=== PATIENT | male | born 1960 | race American Indian/Alaskan Native ===

== ENCOUNTER 2017-01-01 09:02 | Emergency (ER) | payer BC, OTHER ==
[2017-01-01] MEDS ORDERED: Oxycodone/Acetaminophen 5/325 mg Tab PO STA (09:42)
[2017-01-01] MEDS ORDERED: Tmp-Smz 800 mg-160 mg DS Tab PO STA (09:43)
[2017-01-01] MEDS ORDERED: Lidocaine 1% Inj (20ml) INFIL ONE (09:43)
[2017-01-01] MEDS ORDERED: Tmp-Smz 800 mg-160 mg DS Tab ONE (09:52)
[2017-01-01] MEDS ORDERED: Lidocaine 1% Inj (20ml) ONE (09:52)
[2017-01-01] MEDS ORDERED: Oxycodone/Acetaminophen 5/325 mg Tab ONE (09:52)
--- NOTE | 2017-01-01 10:17 | C.PDOC ---
History Of Present Illness 56 y/o male, with no significant PMHx, presents to ED for evaluation of area of swelling to back of neck for the last 4 days. Patient admits to chills and nausea. He denies trauma/ injury, vomiting, abdominal pain, or back pain. Time Seen by Provider: 01/01/17 09:19 Chief Complaint (Nursing): Abnormal Skin Integrity History Per: Patient History/Exam Limitations: no limitations Onset/Duration Of Symptoms: Days (4) Current Symptoms Are (Timing): Still Present Location Of Injury: Posterior: Neck Quality Of Symptoms: Painful, Swollen Severity: Moderate Additional History Per: Patient Past Medical History Reviewed: Historical Data, Nursing Documentation, Vital Signs Vital Signs: Last Vital Signs Temp 103.1 F H 01/01/17 10:51 Pulse 114 H 01/01/17 10:51 Resp 19 01/01/17 10:51 BP 113/72 01/01/17 10:51 Pulse Ox 99 01/01/17 12:33 - Medical History PMH: HTN Surgical History: Cholecystectomy - [facility] Procedures ESOPHAGOGASTRODUODENOSCOPY [EGD] W/CLOSED BIOPSY (04/09/13) INFLUENZA VACCINATION (03/21/13) LAPAROSCOPIC CHOLECYSTECTOMY (03/21/13) Family History: States: No Known Family Hx - Social History Hx Tobacco Use: No Hx Alcohol Use: Yes Hx Substance Use: No - Immunization History Hx Tetanus Toxoid Vaccination: No Hx Influenza Vaccination: No Hx Pneumococcal Vaccination: No Review Of Systems Except As Marked, All Systems Reviewed And Found Negative. Constitutional: Positive for: Chills Cardiovascular: Negative for: Chest Pain Respiratory: Negative for: Cough, Shortness of Breath Gastrointestinal: Positive for: Nausea. Negative for: Vomiting, Abdominal Pain , Diarrhea Skin: Positive for: Other (area of swelling to posterior neck). Negative for: Rash Neurological: Negative for: Headache, Dizziness Physical Exam - Physical Exam Appears: Well, Non-toxic, Other (In mild pain) Skin: Warm, Dry, Other (3cm area of fluctuant abscess to posterior aspect of neck (at C-6 level) that is tender and warm to touch) Head: Normacephalic Eye(s): bilateral: Normal Inspection Oral Mucosa: Moist Neck: Normal ROM, Supple Cardiovascular: Rhythm Regular (mildly tachycardic) Respiratory: Normal Breath Sounds, No Rales, No Rhonchi, No Wheezing Gastrointestinal/Abdominal: Normal Exam, Bowel Sounds, Soft, No Tenderness Extremity: Normal ROM Neurological/Psych: Oriented x3 ED Course And Treatment O2 Sat by Pulse Oximetry: 99 (RA) Pulse Ox Interpretation: Normal Progress Note: I&D performed by me - patient tolerated the procedure well. Wound cultures obtainend sent to lab. Pt was given Keflex PO, Bactrim PO, Percocet PO, and Zofran PO in ED. Reevaluation Time: 10:30 Reassessment Condition: Improved (Patient reassessed, is feeling better. Rxs given for Bactrim, Kelfex, Tylenol #3, Zofran. Patient instructed to return to ED in 2 days for wound chck/packing removal.) - Incision & Drainage Of Abscess Anesthesia: Lidocaine 1% (2ml) Procedure: Incised W/Scalpel Blade#: (11), Drained Pus (expressed 20ml of purulent foul smelling discharge), Irrigated Cavity W/Saline, Packed W/Gauze, Cultures Obtained And Sent To Lab Disposition Counseled Patient/Family Regarding: Studies Performed, Diagnosis, Need For Followup, Rx Given - Disposition Referrals: Marco A Lees Jr., MD [Medical Doctor] - Disposition: HOME/ ROUTINE Disposition Time: 10:30 Condition: STABLE Additional Instructions: RETURN TO ER IN 48 HOURS FOR WOUND CHECK, PACKING REMOVAL USE MEDICATIONS DIRECTED RETURN TO ER IF SYMPTOMS WORSEN Prescriptions: Acetaminophen with Codeine [Tylenol with Codeine #3 Tablet] 1 each PO Q6 PRN # 15 tablet PRN Reason: pain Cephalexin [Keflex] 500 mg PO BID #14 capsule Ondansetron [Zofran Odt] 4 mg PO Q8 PRN #10 odt PRN Reason: Nausea/Vomiting Sulfamethoxazole/Trimethoprim [Bactrim DS 800 mg-160 mg] 1 tab PO BID #14 tab Instructions: Abscess (ED) Forms: [facility] (Singaporean) Print Language: BELIZEAN - Clinical Impression Clinical Impression: Abscess of back - Scribe Statement The provider has reviewed the documentation as recorded by the Yadi Castillo All medical record entries made by the Sheilaibclaudia were at my direction and personally dictated by me. I have reviewed the chart and agree that the record accurately reflects my personal performance of the history, physical exam, medical decision making, and the department course for this patient. I have also personally directed, reviewed, and agree with the discharge instructions and disposition.
[2017-01-01 10:53] VITALS: BP 113/72; PULSE 114; RESP 19; TEMP 103.1
[2017-01-01 12:19] VITALS: O2SAT 99
== END 2017-01-01 11:08 | disposition home or self-care (01) ==
LOC: C.ER 09:02
DX: L02.11 Cutaneous abscess of neck (principal)

== ENCOUNTER 2017-01-04 16:43 | Emergency (ER) | payer BC ==
[2017-01-04 17:45] VITALS: BP 135/99; PULSE 84; RESP 16; TEMP 98.4; O2SAT 97
--- NOTE | 2017-01-04 18:03 | C.PDOC ---
History Of Present Illness 56 yr old male presents to the ER for packing removal, s/p I&D to the back of the neck 3 days ago. Patient states he is compliant with the antibiotics. Currently he denies fever, chills, drainage. Time Seen by Provider: 01/04/17 17:53 Chief Complaint (Nursing): Wound Check History Per: Patient History/Exam Limitations: no limitations Onset/Duration Of Symptoms: Days Ago (3) Past Medical History Reviewed: Historical Data, Nursing Documentation, Vital Signs Vital Signs: Last Vital Signs Temp 98.4 F 01/04/17 17:44 Pulse 84 01/04/17 17:44 Resp 16 01/04/17 17:44 BP 135/99 H 01/04/17 17:44 Pulse Ox 97 01/04/17 18:10 - Medical History PMH: HTN Surgical History: Cholecystectomy - [facility] Procedures ESOPHAGOGASTRODUODENOSCOPY [EGD] W/CLOSED BIOPSY (04/09/13) INFLUENZA VACCINATION (03/21/13) LAPAROSCOPIC CHOLECYSTECTOMY (03/21/13) Family History: States: No Known Family Hx - Social History Hx Tobacco Use: No Hx Alcohol Use: Yes Hx Substance Use: No - Immunization History Hx Tetanus Toxoid Vaccination: No Hx Influenza Vaccination: No Hx Pneumococcal Vaccination: No Review Of Systems Except As Marked, All Systems Reviewed And Found Negative. Constitutional: Negative for: Fever, Chills Eyes: Negative for: Vision Change Gastrointestinal: Negative for: Nausea, Vomiting Musculoskeletal: Positive for: Other ((+) I&D to the back of neck. ). Negative for: Shoulder Pain Neurological: Negative for: Weakness, Numbness, Headache Physical Exam - Physical Exam Appears: Non-toxic, No Acute Distress Skin: Warm, Dry, Other ((+) Incisional wound to the posterior neck with packing in place. No erythema. No swelling. ) Head: Atraumatic, Normacephalic Eye(s): bilateral: Normal Inspection Neck: Normal ROM, Supple Chest: Symmetrical Extremity: Bilateral: Atraumatic, Normal Color And Temperature, Normal ROM Neurological/Psych: Oriented x3, Normal Speech Gait: Steady ED Course And Treatment O2 Sat by Pulse Oximetry: 97 (RA) Pulse Ox Interpretation: Normal Medical Decision Making Medical Decision Making: Wound packing removed by me, no more purulent discharge expressed and mild blood. Area was irrigated with NS. No further packing needed. Area cleansed and dressing was applied. Patient was instructed to continue and finish course of antibiotics. Patient stable for discharge. Disposition Counseled Patient/Family Regarding: Diagnosis, Need For Followup - Disposition Disposition: HOME/ ROUTINE Disposition Time: 18:03 Condition: GOOD Additional Instructions: Please continue and finish all antibiotics change dressing daily, wound will heal Follow up with your primary medical doctor or clinic in 2-5 days for further evaluation Instructions: Acute Wound Care (ED) Forms: [email or web address] (Palauan), Work Excuse - POA Present On Arrival: None - Clinical Impression Clinical Impression: Abscess packing removal - PA / ENGINE INSPECTOR / Resident Statement MD/DO has reviewed & agrees with the documentation as recorded. - Scribe Statement The provider has reviewed the documentation as recorded by the Scribe Jolynn Mcbride All medical record entries made by the Scribe were at my direction and personally dictated by me. I have reviewed the chart and agree that the record accurately reflects my personal performance of the history, physical exam, medical decision making, and the department course for this patient. I have also personally directed, reviewed, and agree with the discharge instructions and disposition.
== END 2017-01-04 18:17 | disposition home or self-care (01) ==
LOC: C.ER 16:43
DX: Z48.01 Encounter for change or removal of surgical wound dressing (principal)

== ENCOUNTER 2018-03-11 19:15 | Emergency (ER) | payer BC ==
[2018-03-11 19:27] VITALS: BP 153/94; PULSE 101; RESP 20; TEMP 98.9; O2SAT 95
[2018-03-11] MEDS ORDERED: Lidocaine 5% Patch TD STA (19:54)
--- NOTE | 2018-03-11 20:01 | C.PDOC ---
History Of Present Illness 58 y/o male pt presents to the ER c/o intermittent right shoulder pain x 3 weeks. Pt reports pain is worse at night. No improvements with 800 mg of Motrin. Pt states it's a "spasm". No hx of similar injuries, no numbness or tingling and weakness. Time Seen by Provider: 03/11/18 19:45 Chief Complaint (Nursing): Upper Extremity Problem/Injury History Per: Patient History/Exam Limitations: no limitations Onset/Duration Of Symptoms: Days (21) Current Symptoms Are (Timing): Still Present Quality: "Pain" Severity: Moderate Exacerbating Factor(s): Worse At Night Past Medical History Reviewed: Historical Data, Nursing Documentation, Vital Signs Vital Signs: Last Vital Signs Temp 98.9 F 03/11/18 19:21 Pulse 101 H 03/11/18 19:21 Resp 20 03/11/18 19:21 BP 153/94 H 03/11/18 19:21 Pulse Ox 95 03/11/18 19:21 - Medical History PMH: HTN Surgical History: Cholecystectomy - [facility] Procedures ESOPHAGOGASTRODUODENOSCOPY [EGD] W/CLOSED BIOPSY (04/09/13) INFLUENZA VACCINATION (03/21/13) LAPAROSCOPIC CHOLECYSTECTOMY (03/21/13) Family History: States: Unknown Family Hx - Social History Hx Tobacco Use: No Hx Alcohol Use: No Hx Substance Use: No - Immunization History Hx Tetanus Toxoid Vaccination: No Hx Influenza Vaccination: No Hx Pneumococcal Vaccination: No Review Of Systems Constitutional: Negative for: Fever, Other (previous injury of shoulder ) Musculoskeletal: Positive for: Shoulder Pain. Negative for: Neck Pain, Back Pain Neurological: Negative for: Weakness, Numbness, Other (tingling) Physical Exam - Physical Exam Appears: Well, Non-toxic, No Acute Distress Skin: Normal Color, Warm, Dry Head: Atraumatic, Normacephalic Neck: No Midline Cervical Tenderness, Supple Chest: No Deformity, No Tenderness Extremity: Normal ROM (to right shoulder.), Tenderness (diffuse tender of right anterior and posterior shoulder ), Capillary Refill (<2 sec), No Swelling (to any extremity) Extremity: Bilateral: Atraumatic, Normal Color And Temperature Pulses: Left Radial: Normal, Right Radial: Normal Neurological/Psych: Oriented x3, Normal Speech, Normal Cognition, Normal Motor, Normal Sensation ED Course And Treatment O2 Sat by Pulse Oximetry: 95 (RA) Pulse Ox Interpretation: Normal Medical Decision Making Medical Decision Making: Impression: intermittent shoulder pain Plans: -- lidocaine -- toradol -- tylenol 2027 pt with intermittent migratory right shoulder pain, no trauma, x 3 weeks, worse at night. feels better after toradol and lidoderm patch. no findings consistent with fx, no signs infections. d/c home with pmd and ortho f/u Disposition Counseled Patient/Family Regarding: Diagnosis, Need For Followup, Rx Given - Disposition Referrals: Marco A Lees Jr., MD [Medical Doctor] - Melvin Andrea III, MD [Staff Provider] - Disposition: HOME/ ROUTINE Disposition Time: 20:31 Condition: GOOD Additional Instructions: Remove lidoderm patch after 12 hours. Wait 12 hours before applying another patch. Take ibuprofen 600 mg by mouth (with food); alternate with Tylenol. Take muscle relaxant at bedtime. Follow up next week with Dr Lees and Dr Andrea. Prescriptions: Acetaminophen [Tylenol 325mg tab] 650 mg PO Q4 #50 tab Cyclobenzaprine [Flexeril] 10 mg PO HS #10 tab Lidocaine 5% [Lidoderm] 1 ea TD DAILY #6 patch Instructions: Shoulder Sprain (DC) Forms: [facility] (Czech), General Discharge Instructions - Clinical Impression Clinical Impression: Right shoulder pain - PA / SENIOR DIRECTOR FINANCE / Resident Statement / has reviewed & agrees with the documentation as recorded. - Scribe Statement The provider has reviewed the documentation as recorded by the Yadi Ga Do All medical record entries made by the Scribe were at my direction and personally dictated by me. I have reviewed the chart and agree that the record accurately reflects my personal performance of the history, physical exam, medical decision making, and the department course for this patient. I have also personally directed, reviewed, and agree with the discharge instructions and disposition.
[2018-03-11] MEDS ORDERED: Lidocaine 5% Patch TD ONE (20:04)
== END 2018-03-11 20:41 | disposition home or self-care (01) ==
LOC: C.ER 19:15
DX: M25.511 Pain in right shoulder (principal)
CPT/HCPCS: 96372; 99283; J1885

== ENCOUNTER 2018-04-05 09:33 | Emergency (ER) | payer BC ==
[2018-04-05 09:55] VITALS: TEMP 97.9
--- NOTE | 2018-04-05 10:55 | C.PDOC ---
History Of Present Illness 58 year old male with a history of HTN and diabetes presents to the emergency department with complaints of right shoulder pain, associated with nausea and dizziness this morning. Patient states that his dizziness is worse with movement but alleviated by lying down. Patient states that he is right-hand dominant and denies injury, trauma, or abdominal pain. Time Seen by Provider: 04/05/18 09:56 Chief Complaint (Nursing): Dizziness/Lightheaded History Per: Patient History/Exam Limitations: no limitations Onset/Duration Of Symptoms: Days Current Symptoms Are (Timing): Still Present Quality: "Pain" Exacerbating Factor(s): Strenuous Use Of Affected Area, Movement Past Medical History Reviewed: Historical Data, Nursing Documentation, Vital Signs Vital Signs: Last Vital Signs Temp 97.9 F 04/05/18 09:45 Pulse 15 L 04/05/18 09:45 Resp 15 04/05/18 09:45 BP 136/94 H 04/05/18 09:45 Pulse Ox 95 04/05/18 09:45 - Medical History PMH: HTN Surgical History: Cholecystectomy - [facility] Procedures ESOPHAGOGASTRODUODENOSCOPY [EGD] W/CLOSED BIOPSY (04/09/13) INFLUENZA VACCINATION (03/21/13) LAPAROSCOPIC CHOLECYSTECTOMY (03/21/13) Family History: States: No Known Family Hx - Social History Hx Tobacco Use: No Hx Alcohol Use: Yes Hx Substance Use: No - Immunization History Hx Tetanus Toxoid Vaccination: No Hx Influenza Vaccination: No Hx Pneumococcal Vaccination: No Review Of Systems Except As Marked, All Systems Reviewed And Found Negative. Musculoskeletal: Positive for: Shoulder Pain Neurological: Positive for: Dizziness Physical Exam - Physical Exam Appears: Non-toxic, No Acute Distress Skin: Normal Color, Warm, Dry Head: Atraumatic, Normacephalic Eye(s): bilateral: Normal Inspection, PERRL, EOMI Nose: Normal Neck: Normal, Supple Chest: Symmetrical, No Tenderness Cardiovascular: Rhythm Regular, No Murmur Respiratory: Normal Breath Sounds, No Rales, No Rhonchi, No Wheezing Gastrointestinal/Abdominal: Soft, No Tenderness, No Guarding, No Rebound Extremity: Tenderness (to the right trapezius), No Deformity, No Swelling, No Other (cellulitic process) Extremity: Bilateral: Atraumatic, Normal Color And Temperature, Normal ROM Neurological/Psych: Oriented x3, Normal Speech ED Course And Treatment - Laboratory Results Result Diagrams: 04/05/18 11:17 04/05/18 11:17 ECG: Interpreted By Me, Viewed By Me ECG Rhythm: Sinus Rhythm Interpretation Of ECG: Normal sinus rhythm at 70bpm, normal intervals, nonspecific ST-T wave changes. Rate From EC O2 Sat by Pulse Oximetry: 95 (RA) Pulse Ox Interpretation: Normal - Other Rad XR Right Shoulder X-Ray: Viewed By Me, Read By Radiologist Interpretation: IMPRESSION: No acute displaced fracture or dislocation evident. If symptoms persist or if there is continued clinical concern, x-ray follow-up in 7-10 days should be considered. CXR X-Ray: Viewed By Me, Read By Radiologist Interpretation: IMPRESSION: No focal consolidation. - CT Scan/US CT Head Other Rad Studies (CT/US): Read By Radiologist, Radiology Report Reviewed CT/US Interpretation: IMPRESSION: No acute intracranial pathology identified. 2.1 x 0.4 cm probable lipoma, left frontal scalp soft tissues. Medical Decision Making Medical Decision Making: Plan: CT Head w/o Contrast EKG Chemistry Bloodwork CXR Antivert 25mg PO Toradol 30mg IVP Zofran 4mg IVP XR Right Shoulder Urinalysis Assessment: Dizziness. Right Shoulder Pain/nausea patient states improvement. Will discharge home to follow up with pain management. Disposition - Disposition Referrals: Porfirio Calix DO, DO [Medical Doctor] - Carlos Cerda MD [Medical Doctor] - Ramo Barrett MD [Medical Doctor] - Disposition: HOME/ ROUTINE Disposition Time: 16:07 Condition: STABLE Additional Instructions: follow up with pain management within 2 days call from list provided take medications as needed for pain return to ER if symptoms worsens or progress Prescriptions: Acetaminophen/Codeine [Tylenol/Codeine 300 MG/30 MG] 1 tab PO Q6H PRN #12 tab PRN Reason: Pain, Severe (8-10) Cyclobenzaprine [Cyclobenzaprine HCl] 10 mg PO TID PRN #12 tab PRN Reason: Muscle Spasm Naproxen [Naprosyn] 500 mg PO BID PRN #16 tab PRN Reason: Pain, Moderate (4-7) Ondansetron ODT [Zofran ODT] 4 mg PO TID PRN #12 odt PRN Reason: Nausea/Vomiting Instructions: Upper Back Pain (DC), Nausea and Vomiting, Adult (DC) Forms: [facility] (Montenegrin), General Discharge Instructions - Clinical Impression Clinical Impression: Back pain, Nausea & vomiting - Scribe Statement The provider has reviewed the documentation as recorded by the Scribe (Jorge L Butterfield) Provider Attestation: All medical record entries made by the Scribe were at my direction and personally dictated by me. I have reviewed the chart and agree that the record accurately reflects my personal performance of the history, physical exam, medical decision making, and the department course for this patient. I have also personally directed, reviewed, and agree with the discharge instructions and disposition.
--- NOTE | 2018-04-05 11:28 | CT ---
Date of service: 04/05/2018 PROCEDURE: CT HEAD WITHOUT CONTRAST. HISTORY: dizziness COMPARISON: Noncontrast brain MRI performed 04/10/13 TECHNIQUE: Axial computed tomography images were obtained through the head/brain without intravenous contrast. Radiation dose: Total exam DLP = 1102.83 mGy-cm. This CT exam was performed using one or more of the following dose reduction techniques: Automated exposure control, adjustment of the mA and/or kV according to patient size, and/or use of iterative reconstruction technique. FINDINGS: HEMORRHAGE: No intracranial hemorrhage. BRAIN: No mass effect or edema. Turner-white matter differentiation appears intact. Please note that MRI with diffusion imaging is more sensitive in the detection of acute ischemic event. VENTRICLES: No hydrocephalus. CALVARIUM: Unremarkable. PARANASAL SINUSES: Unremarkable as visualized. No significant inflammatory changes. MASTOID AIR CELLS: Unremarkable as visualized. No inflammatory changes. OTHER FINDINGS: 2.1 x 0.4 cm probable lipoma, left frontal scalp soft tissues. IMPRESSION: No acute intracranial pathology identified. 2.1 x 0.4 cm probable lipoma, left frontal scalp soft tissues.
[2018-04-05 11:29] LABS: BASO % 0.4 % (0.0-2.0); EOS # 0.1 K/uL (0.0-0.7); LYMPH # 0.9 K/uL (1.0-4.3); LYMPH % 9.7 % (20.0-40.0); MEAN CORPUSCULAR HEMOGLOBIN 30.8 pg (27.0-31.0); MEAN CORPUSCULAR HGB CONC 34.3 g/dL (33.0-37.0); MEAN PLATELET VOLUME 9.2 fL (7.2-11.7); MONO # 0.7 K/uL (0.0-0.8); MONO % 7.9 % (0.0-10.0); NEUT # 7.3 K/uL (1.8-7.0); PLATELET COUNT 212 K/uL (130-400); RBC 5.39 Mil/uL (4.40-5.90); RED CELL DISTRIBUTION WIDTH 14.2 % (11.5-14.5)
[2018-04-05 11:35] LABS: HEMOGLOBIN 16.6 g/dL (12.0-18.0)
[2018-04-05 11:56] LABS: ALB/GLOB RATIO 1.2 (1.0-2.1); ALBUMIN 4.4 g/dL (3.5-5.0); ALT/SGPT 37 U/L (21-72); AST/SGOT 36 U/L (17-59); BLOOD UREA NITROGEN 19 mg/dL (9-20); CALCIUM 9.8 mg/dl (8.6-10.4); GFR NON-AFRICAN AMERICAN 57
[2018-04-05 12:06] LABS: B-TYPE NATRIURETIC PEPTIDE 50.4 pg/mL (0-900)
[2018-04-05 12:13] LABS: BANDS 1 % (0-2); BASOPHIL 1 % (0-2); EOSINOPHIL 1 % (0-4); LYMPHOCYTE 10 % (20-40); MONOCYTE 6 % (0-10); NEUTROPHIL 80 % (50-75); PLATELET ESTIMATE NORMAL (NORMAL); REACTIVE LYMPHOCYTES 1 % (0-0); TOTAL CELLS COUNTED 100
--- NOTE | 2018-04-05 12:17 | RAD ---
HISTORY: SOB COMPARISON: Chest x-ray performed 03/21/13 TECHNIQUE: Chest PA and lateral FINDINGS: LUNGS: No focal consolidation. Please note that chest x-ray has limited sensitivity for the detection of pulmonary masses. PLEURA: No significant pleural effusion identified. No definite pneumothorax . CARDIOVASCULAR: Heart size appears within normal limits. No atherosclerotic calcification present. OSSEOUS STRUCTURES: Degenerative changes. VISUALIZED UPPER ABDOMEN: Elevation of the right hemidiaphragm. OTHER FINDINGS: None. IMPRESSION: No focal consolidation.
--- NOTE | 2018-04-05 12:22 | RAD ---
PROCEDURE: Radiographs of the Right Shoulder HISTORY: right shoulder pain COMPARISON: No prior. FINDINGS: BONES: No acute displaced fracture. The distal clavicle and underlying ribs appear intact. JOINTS: No acute dislocation. SOFT TISSUES: Soft tissues appear unremarkable. No evidence of radiopaque foreign body. IMPRESSION: No acute displaced fracture or dislocation evident. If symptoms persist or if there is continued clinical concern, x-ray follow-up in 7-10 days should be considered.
[2018-04-05 13:56] LABS: SQUAMOUS EPITHIAL < 1 /hpf (0-5); URINE BILIRUBIN NEGATIVE (NEGATIVE); URINE BLOOD NEGATIVE (NEGATIVE); URINE CLARITY Clear (Clear); URINE COLOR Straw (YELLOW); URINE GLUCOSE (UA) NORMAL (Normal); URINE LEUKOCYTE ESTERASE NEG Leu/uL (Negative); URINE PROTEIN NEGATIVE (NEGATIVE); URINE UROBILINOGEN NORMAL mg/dL (0.2-1.0)
[2018-04-05] MEDS ORDERED: Lidocaine 100 MG in Sodium Chloride 0.9% 100 ML IV STA (14:09)
[2018-04-05 16:15] VITALS: BP 143/90; PULSE 81; RESP 16; O2SAT 98
--- NOTE | 2018-04-06 22:30 | CARD ---
APPROVED REPORT Date of service: 04/05/2018 EKG Measurement Heart [id number] <Conclusion> Normal sinus rhythm ST elevation, consider early repolarization, pericarditis, or injury Abnormal ECG
== END 2018-04-05 16:20 | disposition home or self-care (01) ==
LOC: C.ER 09:33
DX: R11.2 Nausea with vomiting, unspecified (principal); M54.9 Dorsalgia, unspecified; E11.9 Type 2 diabetes mellitus without complications; I10 Essential (primary) hypertension
CPT/HCPCS: 70450; 71046; 73030; 80053; 81001; 82948; 83735; 83880; 84484; 85025; 93005; 96374; 96375; 99285; J1885; J2001; J2405

== ENCOUNTER 2018-09-03 19:25 | Observation (INO) | payer BC ==
--- NOTE | 2018-09-03 19:37 | C.PDOC ---
History Of Present Illness Patient presents to the ED c/o abdominal pain associated with nausea that has been on and off for the past 3-4 days. Patient reports trying OTC antacids with no relief. Patient still feels nauseous and has decreased PO intake. Patient denies fever, chills, vomit, diarrhea, dysuria, hematuria, back pain, rash. Time Seen by Provider: 09/03/18 19:36 Chief Complaint (Nursing): Abdominal Pain History Per: Patient History/Exam Limitations: no limitations Onset/Duration Of Symptoms: Days (3-4) Current Symptoms Are (Timing): Still Present Context: Food Severity: Moderate Pain Scale Rating Of: 4 Location Of Pain/Discomfort: Diffuse Radiation Of Pain To:: None Quality Of Discomfort: Dull, Aching, "Pain" Associated Symptoms: Nausea, Loss Of Appetite. denies: Vomiting, Diarrhea, Constipation, Urinary Symptoms Alleviating Factors: None Last Bowel Movement: Today Recent travel outside of the [place]: No Additional History Per: Patient Past Medical History Reviewed: Historical Data, Nursing Documentation, Vital Signs Vital Signs: Last Vital Signs Temp 98.6 F 09/03/18 19:27 Pulse 99 H 09/03/18 19:27 Resp 16 09/03/18 19:27 BP 138/102 H 09/03/18 19:27 Pulse Ox 99 09/03/18 19:27 Primary Care Provider: Marco A Lees Jr. - Medical History PMH: HTN Surgical History: Cholecystectomy - [facility] Procedures ESOPHAGOGASTRODUODENOSCOPY [EGD] W/CLOSED BIOPSY (04/09/13) INFLUENZA VACCINATION (03/21/13) LAPAROSCOPIC CHOLECYSTECTOMY (03/21/13) Family History: States: Unknown Family Hx - Social History Hx Tobacco Use: No Hx Alcohol Use: Yes Hx Substance Use: No - Immunization History Hx Tetanus Toxoid Vaccination: No Hx Influenza Vaccination: No Hx Pneumococcal Vaccination: No Review Of Systems Constitutional: Negative for: Fever, Chills Cardiovascular: Negative for: Chest Pain, Palpitations Respiratory: Negative for: Shortness of Breath Gastrointestinal: Positive for: Nausea, Abdominal Pain. Negative for: Vomiting, Diarrhea Genitourinary: Negative for: Dysuria Musculoskeletal: Negative for: Back Pain Skin: Negative for: Rash Neurological: Negative for: Weakness, Numbness, Headache Physical Exam - Physical Exam Appears: Non-toxic, No Acute Distress Skin: Warm, Dry Head: Normacephalic Eye(s): bilateral: Normal Inspection Oral Mucosa: Moist Neck: Supple Chest: Symmetrical Cardiovascular: Rhythm Regular Respiratory: No Rales, No Rhonchi, No Wheezing Gastrointestinal/Abdominal: Soft, Tenderness (diffuse), Distention, No Guarding, No Rebound, Other (tympanic to percussion) Back: No CVA Tenderness Extremity: No Tenderness Extremity: Bilateral: Atraumatic, Normal Color And Temperature, Normal ROM Pulses: Left Dorsalis Pedis: Normal, Right Dorsalis Pedis: Normal Neurological/Psych: Oriented x3 Gait: Steady ED Course And Treatment - Laboratory Results Result Diagrams: 09/03/18 20:06 09/03/18 20:06 ECG: Interpreted By Me, Viewed By Me ECG Rhythm: Sinus Rhythm (77), Nonspecific Changes O2 Sat by Pulse Oximetry: 99 (ON RA) Pulse Ox Interpretation: Normal Progress Note: Plan: - EKg. - Labs. - Protonix 40 mg IVP. - IV fluids. - Zofran 4 mg IVP. - UA. Report Submission Date: September 03, 2018 10:22:52 PM EDT. Name:CELIO RODRIGUEZ Exam Date:September 03, 2018 9:33:28 PM EDT. Mod ality Type:CT. Description:CT - ABDOMEN AND PELVIS. Gender:M Laterality:Not applicable. :64 Referring Physician:David Hudson). CT of the abdomen and pelvis with contrast. Clinical statement: Pain. Technique: Multiple axial CT images were obtained from the base of the lungs through the floor of the pelvis utilizing 5 mm axial slices after administration of oral and nonionic intravenous contrast. Coronal and sagittal reconstructions were also obtained. Comparison: None. Findings: Chest: The visualized lung bases demonstrate minimal atelectasis bilaterally. Abdomen: The spleen, pancreas, kidneys, and adrenal glands are unremarkable. Diffuse low attenuation of hepatic parenchyma is noted. The aorta is within normal limits. There is no evidence of abdominal lymphadenopathy or ascites. There is mild fluid distention and bowel wall thickening throughout the small bowel. Pelvis: Moderate amount of stool fills the colon. The colon is otherwise unremarkable, with no obstructive or inflammatory changes. The appendix is normal. The urinary bladder is within normal limits. The other pelvic structures appear grossly intact. There is no evidence of pelvic lymphadenopathy or ascites. Bones: There are no suspicious osseous abnormalities seen. Left hip arthroplasty is in place. Impression: 1. Moderate constipation. 2. Mild enteritis. No evidence of small bowel obstruction. 3. Fatty infiltration of the liver. 4. Minimal atelectasis in the lung bases bilaterally. . Electronically signed on September 03, 2018 10:22:52 PM EDT by: Rafy Thompson M.D., M.B.A., Certified By [employer]BR. Fellowship Trained MRI and CT Specialist. Disposition Discussed With Dr.: Marco A Lees Jr. Comment: accepted the pt on his service and took over the care at 11:33 PM Doctor Will See Patient In The: ED Counseled Patient/Family Regarding: Studies Performed, Diagnosis - Disposition Disposition: HOSPITALIZED Disposition Time: 19:36 Condition: FAIR Forms: [facility] (Yoruba) - POA Present On Arrival: None - Clinical Impression Clinical Impression: Abdominal pain, Abdominal bloating, Acute gastritis - Scribe Statement The provider has reviewed the documentation as recorded by the Scribclaudia Alexandre All medical record entries made by the Scribe were at my direction and personally dictated by me. I have reviewed the chart and agree that the record accurately reflects my personal performance of the history, physical exam, medical decision making, and the department course for this patient. I have also personally directed, reviewed, and agree with the discharge instructions and disposition. Decision To Admit - Pt Status Changed To: Hospital Disposition Of: Observation - . Bed Request Type: Regular Admitting Physician: Marco A Lees Jr. Patient Diagnosis: Abdominal pain, Abdominal bloating, Acute gastritis
[2018-09-03] MEDS ORDERED: Sodium Chloride 0.9% 1,000 ML IV ONE (19:55)
[2018-09-03 20:09] LABS: BASO % 0.4 % (0.0-2.0); EOS # 0.1 K/uL (0.0-0.7); EOS % 1.1 % (0.0-4.0); HEMOGLOBIN 17.1 g/dL (12.0-18.0); LYMPH # 2.4 K/uL (1.0-4.3); LYMPH % 30.4 % (20.0-40.0); MEAN CELL VOLUME 87.9 fL (80.0-94.0); MEAN CORPUSCULAR HEMOGLOBIN 30.3 pg (27.0-31.0); MEAN CORPUSCULAR HGB CONC 34.5 g/dL (33.0-37.0); MEAN PLATELET VOLUME 8.5 fL (7.2-11.7); MONO # 0.6 K/uL (0.0-0.8); MONO % 7.8 % (0.0-10.0); NEUT # 4.7 K/uL (1.8-7.0); NEUT % 60.3 % (50.0-75.0); RBC 5.65 Mil/uL (4.40-5.90); RED CELL DISTRIBUTION WIDTH 13.7 % (11.5-14.5); WHITE BLOOD COUNT 7.8 K/uL (4.8-10.8)
[2018-09-03 20:16] LABS: INR 1.2; PARTIAL THROMBOPLASTIN TIME 33.5 SECONDS (21-34); PROTHROMBIN TIME 12.6 SECONDS (9.7-12.2)
[2018-09-03 20:22] LABS: ALB/GLOB RATIO 1.2 (1.0-2.1); ALBUMIN 4.7 g/dL (3.5-5.0); ALT/SGPT 44 U/L (21-72); AST/SGOT 35 U/L (17-59); BLOOD UREA NITROGEN 19 mg/dL (9-20); CALCIUM 10.3 mg/dl (8.6-10.4); GFR NON-AFRICAN AMERICAN 45; LIPASE 116 U/L (23-300)
[2018-09-03] MEDS ORDERED: Sodium Chloride 0.9% 1,000 ML ONE (20:23)
[2018-09-03] MEDS ORDERED: Iodixanol 320 MG/ML 100 ML BOTTLE IV ONE (21:18)
[2018-09-03 21:35] LABS: SQUAMOUS EPITHIAL 1 /hpf (0-5); URINE BILIRUBIN NEGATIVE (NEGATIVE); URINE BLOOD NEGATIVE (NEGATIVE); URINE CLARITY Clear (Clear); URINE COLOR Yellow (YELLOW); URINE GLUCOSE (UA) NORMAL (Normal); URINE LEUKOCYTE ESTERASE TRACE Leu/uL (Negative); URINE PROTEIN NEGATIVE (NEGATIVE); URINE UROBILINOGEN NORMAL mg/dL (0.2-1.0)
[2018-09-03] MEDS ORDERED: Morphine 4 MG/ML VIAL ONE (22:02)
[2018-09-04] MEDS ORDERED: Potassium Chloride 20 mEq 100 ML ONE (00:04)
--- NOTE | 2018-09-04 00:58 | CP.PCM.HP ---
History of Present Illness - History of Present Illness History of Present Illness: 58M PMHx of HTN presents to the ED c/o abdominal pain associated with nausea that has been on and off for the past 3-4 days. Patient reports trying OTC antacids with no relief. Pt has had many similar episodes of indigestion/ heartburn in the past however this feels more severe. Patient still feels nauseous and has decreased PO intake. Pt did not seek any medical attention yet from PMD, came straight to ER. Pt is still in pain after ED treatments. ROS Pos+ Abd Pain, Nausea, Neg- fever, chills, vomit, diarrhea, dysuria, hematuria, back pain, rash. Present on Admission - Present on Admission Any Indicators Present on Admission: No Review of Systems - Review of Systems All systems: reviewed and no additional remarkable complaints except (as per HPI) Past Patient History - Infectious Disease Hx of Infectious Diseases: None - Past Social History Smoking Status: Never Smoked - CARDIAC Hx Hypertension: Yes - HEMATOLOGICAL/ONCOLOGICAL Other/Comment: Vitamin D Deficiency - PSYCHIATRIC Hx Substance Use: No - SURGICAL HISTORY Hx Cholecystectomy: Yes - ANESTHESIA Hx Anesthesia: Yes Hx Anesthesia Reactions: No Meds Allergies/Adverse Reactions: Allergies Allergy/AdvReac Type Severity Reaction Status Date / Time No Known Allergies Allergy Verified 09/03/18 19:29 Physical Exam - Additional Findings Additional findings: Appears: Non-toxic, No Acute Distress Skin: Warm, Dry Head: Normacephalic Eye(s): bilateral: Normal Inspection Oral Mucosa: Moist Neck: Supple Chest: Symmetrical Cardiovascular: Rhythm Regular Respiratory: No Rales, No Rhonchi, No Wheezing Gastrointestinal/Abdominal: Soft, Tenderness (diffuse), Distention, No Guarding, No Rebound, Other (tympanic to percussion) Back: No CVA Tenderness Extremity: No Tenderness Extremity: Bilateral: Atraumatic, Normal Color And Temperature, Normal ROM Pulses: Left Dorsalis Pedis: Normal, Right Dorsalis Pedis: Normal Neurological/Psych: Oriented x3 Gait: Steady Results - Vital Signs Recent Vital Signs: Last Vital Signs Temp 98.6 F 09/03/18 19:27 Pulse 70 09/04/18 00:10 Resp 16 09/04/18 00:10 BP 114/70 09/04/18 00:10 Pulse Ox 97 09/04/18 00:10 - Labs Result Diagrams: 09/03/18 20:06 09/03/18 20:06 Labs: Laboratory Results - last 24 hr 09/03/18 09/03/18 09/03/18 20:06 20:06 20:06 WBC 7.8 RBC 5.65 Hgb 17.1 Hct 49.7 MCV 87.9 D MCH 30.3 MCHC 34.5 RDW 13.7 Plt Count 226 MPV 8.5 Neut % (Auto) 60.3 Lymph % (Auto) 30.4 [place] % (Auto) 7.8 Eos % (Auto) 1.1 Baso % (Auto) 0.4 Neut # (Auto) 4.7 Lymph # (Auto) 2.4 [place] # (Auto) 0.6 Eos # (Auto) 0.1 Baso # (Auto) 0.0 PT 12.6 H INR 1.2 APTT 33.5 Sodium 136 Potassium 3.3 L Chloride 97 L Carbon Dioxide 28 Anion Gap 15 BUN 19 Creatinine 1.6 H Est GFR ( Amer) 54 Est GFR (Non-Af Amer) 45 Random Glucose 98 Calcium 10.3 Total Bilirubin 1.1 AST 35 ALT 44 Alkaline Phosphatase 92 Troponin I < 0.0120 Total Protein 8.8 H Albumin 4.7 Globulin 4.0 H Albumin/Globulin Ratio 1.2 Lipase 116 Urine Color Urine Clarity Urine pH Ur Specific [place] Urine Protein Urine Glucose (UA) Urine Ketones Urine Blood Urine Nitrate Urine Bilirubin Urine Urobilinogen Ur Leukocyte Esterase Urine WBC (Auto) Ur Squamous Epith Cells 09/03/18 21:25 WBC RBC Hgb Hct MCV MCH MCHC RDW Plt Count MPV Neut % (Auto) Lymph % (Auto) [place] % (Auto) Eos % (Auto) Baso % (Auto) Neut # (Auto) Lymph # (Auto) [place] # (Auto) Eos # (Auto) Baso # (Auto) PT INR APTT Sodium Potassium Chloride Carbon Dioxide Anion Gap BUN Creatinine Est GFR ( Amer) Est GFR (Non-Af Amer) Random Glucose Calcium Total Bilirubin AST ALT Alkaline Phosphatase Troponin I Total Protein Albumin Globulin Albumin/Globulin Ratio Lipase Urine Color Yellow Urine Clarity Clear Urine pH 6.0 Ur Specific [place] 1.006 Urine Protein Negative Urine Glucose (UA) Normal Urine Ketones Trace Urine Blood Negative Urine Nitrate Negative Urine Bilirubin Negative Urine Urobilinogen Normal Ur Leukocyte Esterase Trace Urine WBC (Auto) 3 Ur Squamous Epith Cells 1 Assessment & Plan - Assessment and Plan (Free Text) Assessment: 58M admitted for observation of abdominal pain Plan: Abdominal Pain -CT neg -WBCs wnl, afebrile -Zofran q4 PRN -Lactulose -simethicone -PTX 40 dailyy -NS @ 100 -Maalox HTN -HCTZ 25 daily PPx PTX 40 Liquid Diet CK PGY1
[2018-09-04] MEDS ORDERED: Simethicone 80 mg Chewtab PO PRN (01:03)
[2018-09-04] MEDS ORDERED: Potassium Chloride 20 mEq/15 ml LIQ UD PO STA (01:03)
[2018-09-04] MEDS: Sodium Chloride 0.9% 1,000 ML IV SCH ×3 (01:13→21:55)
[2018-09-04] MEDS ORDERED: Potassium Chloride 20 mEq/15 ml LIQ UD ONE (02:13)
[2018-09-04] MEDS ORDERED: DiphenhydrAMINE 50 mg/ml Inj IVP STA (02:57)
[2018-09-04] MEDS ORDERED: DiphenhydrAMINE 50 mg/ml Inj ONE (03:15)
[2018-09-04] MEDS ORDERED: Magnesium Citrate Oral SOL (300 ml) PO ONE ×2 (06:20→09:25)
[2018-09-04] MEDS ORDERED: Magnesium Citrate Oral SOL (300 ml) ONE (06:38)
[2018-09-04 07:23] LABS: EOS # 0.2 K/uL (0.0-0.7); EOS % 4.3 % (0.0-4.0); NRBC % 0.1 % (0.0-2.0)
[2018-09-04 07:32] LABS: BASO % 0.6 % (0.0-2.0); LYMPH # 1.7 K/uL (1.0-4.3); LYMPH % 31.1 % (20.0-40.0); MEAN CELL VOLUME 88.3 fL (80.0-94.0); MEAN CORPUSCULAR HEMOGLOBIN 30.9 pg (27.0-31.0); MONO # 0.7 K/uL (0.0-0.8); MONO % 12.2 % (0.0-10.0); NEUT # 2.9 K/uL (1.8-7.0); NEUT % 51.8 % (50.0-75.0); RBC 4.84 Mil/uL (4.40-5.90); RED CELL DISTRIBUTION WIDTH 14.4 % (11.5-14.5); WHITE BLOOD COUNT 5.6 K/uL (4.8-10.8)
[2018-09-04 07:39] LABS: ALB/GLOB RATIO 1.2 (1.0-2.1); ALBUMIN 3.8 g/dL (3.5-5.0); ALT/SGPT 40 U/L (21-72); AST/SGOT 29 U/L (17-59); BLOOD UREA NITROGEN 19 mg/dL (9-20); CALCIUM 8.8 mg/dl (8.6-10.4); GFR NON-AFRICAN AMERICAN 52
[2018-09-04] MEDS: Alum-Mag Hydrox-Simethicone Susp (30 mL) PO SCH ×4 (09:52→22:04)
--- NOTE | 2018-09-04 11:46 | CP.PCM.PN ---
Subjective - Date & Time of Evaluation Date of Evaluation: 09/04/18 Time of Evaluation: 11:43 - Subjective Subjective: Resident Progress Note for Dr. Lees Patient examined at bedside. No acute events overnight. Patient still having persisting abdominal discomfort, both in epigastric region and LLQ. He had a bowel movement after second dose of mag citrate. Denies fevers, chills, chest pain, shortness of breath, diarrhea, dysuria. Objective - Vital Signs/Intake and Output Vital Signs (last 24 hours): Temp Pulse Resp BP Pulse Ox 98.2 F 73 20 119/76 96 09/04/18 08:09 09/04/18 08:09 09/04/18 08:09 09/04/18 08:09 09/04/18 08:09 - Medications Medications: Current Medications Al Hydrox/Mg Hydrox/Simethicone (Maalox Plus 30 Ml) 30 ml PO QID [facility] Last Admin: 09/04/18 09:52 Dose: 30 ml Hydrochlorothiazide (Hydrodiuril) 25 mg PO DAILY [facility] Last Admin: 09/04/18 09:52 Dose: 25 mg Sodium Chloride (Sodium Chloride 0.9%) 1,000 mls @ 100 mls/hr IV .Q10H [facility] Last Admin: 09/04/18 01:13 Dose: 100 mls/hr Ondansetron HCl (Zofran Inj) 4 mg IVP Q4 PRN PRN Reason: Nausea/Vomiting Pantoprazole Sodium (Protonix Inj) 40 mg IVP DAILY [facility] Last Admin: 09/04/18 09:52 Dose: 40 mg Pneumococcal Polyvalent Vaccine (Pneumovax 23 Vaccine) 0.5 ml IM .ONCE ONE Stop: 09/06/18 10:01 Simethicone (Mylicon Chew Tab) 80 mg PO BID PRN PRN Reason: GI distress - Labs Labs: 09/04/18 07:16 09/04/18 07:16 PT 12.6 SECONDS (9.7-12.2) H 09/03/18 20:06 INR 1.2 09/03/18 20:06 APTT 33.5 SECONDS (21-34) 09/03/18 20:06 - Constitutional Appears: Non-toxic, No Acute Distress - Head Exam Head Exam: ATRAUMATIC, NORMOCEPHALIC - Eye Exam Eye Exam: EOMI, Normal appearance, PERRL - ENT Exam ENT Exam: Mucous Membranes Moist - Respiratory Exam Respiratory Exam: Clear to Ausculation Bilateral, NORMAL BREATHING PATTERN. absent: Accessory Muscle Use, Rhonchi, Wheezes, Respiratory Distress - Cardiovascular Exam Cardiovascular Exam: REGULAR RHYTHM, +S1, +S2. absent: Tachycardia - GI/Abdominal Exam GI & Abdominal Exam: Soft, Tenderness (mild, diffuse), Normal Bowel Sounds. absent: Firm, Guarding, Rigid, Rebound - Extremities Exam Extremities Exam: Normal Inspection - Neurological Exam Neurological Exam: Alert, Awake, Oriented x3 - Psychiatric Exam Psychiatric exam: Normal Affect, Normal Mood - Skin Skin Exam: Dry, Intact, Warm Assessment and Plan - Assessment and Plan (Free Text) Assessment: Patient is a 58 year old male with past medical history of hypertension and IGT admitted for nausea and abdominal pain Plan: Abdominal pain, acute - CT abdomen pelvis shows mild constipation, enlarged prostate - negative leukocytosis, afebrile - urinalysis unremarkable - Zofran q4 PRN - Simethicone PRN - Maalox QID - Bentyl QID - NS @ 100 - GI consulted, appreciate recs - NPO after midnight IGT, chronic - Hgba1c 6.1 Hypertension, chronic - home HCTZ 25mg PO daily PPX - Protonix, SCDs Dispo: pending GI recommendations Case reviewed with Dr. Yoana Lyons PGY-1
--- NOTE | 2018-09-04 14:36 | CT ---
Date of service: 09/03/2018 PROCEDURE: CT Abdomen and Pelvis with contrast HISTORY: diffuse abd pain, COMPARISON: Comparison is made to the previous study dated 04/09/2013 TECHNIQUE: Contrast dose: 100 mL of Visipaque 320 intravenously. Axial and reformatted coronal and sagittal CT images of the abdomen and pelvis were obtained after IV contrast administration. Radiation dose: Total exam DLP = 1425.88 mGy-cm. This CT exam was performed using one or more of the following dose reduction techniques: Automated exposure control, adjustment of the mA and/or kV according to patient size, and/or use of iterative reconstruction technique. FINDINGS: LOWER THORAX: Small opacity at the right lung base noted may represent atelectasis. Reticular opacities at the lower lobes may represent scar tissue. No evidence of pleural effusion or pericardial effusion. LIVER: Mild hepatomegaly and moderate hepatic steatosis are noted. GALLBLADDER AND BILE DUCTS: Status post cholecystectomy. PANCREAS: Unremarkable. No gross lesion or ductal dilatation. SPLEEN: Unremarkable. ADRENALS: Unremarkable. No mass. KIDNEYS AND URETERS: Unremarkable. No hydronephrosis. No solid mass. VASCULATURE: Unremarkable. No aortic aneurysm. No aortic atherosclerotic calcification or mural plaque present. BOWEL: Unremarkable. No obstruction. No gross mural thickening. Mild constipation is noted. APPENDIX: No evidence of appendicitis. PERITONEUM: Unremarkable. No free fluid. No free air. LYMPH NODES: Unremarkable. No enlarged lymph nodes. BLADDER: Mild urinary bladder wall thickening. REPRODUCTIVE: Mildly enlarged prostate. BONES: Status post left hip replacement. The appearance of heterogeneous sclerotic and lytic bony lesion at the posterior aspect of T12 since the prior study of uncertain etiology. OTHER FINDINGS: None. IMPRESSION: Mild constipation. No evidence of pancreatitis or appendicitis. Urinary bladder wall thickening. Enlarged prostate. Interval appearance of 2.1 centimeter heterogeneous bony lesion at the left aspect of T12 since the prior study of uncertain etiology. Preliminary report was submitted by [facility].
[2018-09-04] MEDS ORDERED: Oxycodone/Acetaminophen 5/325 mg Tab PO ONE (20:15)
--- NOTE | 2018-09-04 21:01 | CP.PCM.CON ---
History of Present Illness - History of Present Illness History of Present Illness: COVERING DR MEDLEY: 58 YO AA male admitted with three day h/o epigastric pain and nausea after meals. Pain woke him during the night and was started by eating salmon and chicken for dinner on first day of pain. Took antacids with no relief. Has been on PPIs in the past. 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 Soo had a colonoscopy that was also recommended. Has constipation but denies melena or bleeding. No CP, SOB. Bowel moved after laxtive today. CT Scan showed enlarged prostate and large fecal residue. Still having epigastric pain and heartburn after meals today. Review of Systems - Cardiovascular Cardiovascular: absent: Chest Pain at Rest, Diaphoresis, Palpitations, Pedal E christina - Respiratory Respiratory: absent: Cough, Stridor - Gastrointestinal Gastrointestinal: As Per HPI, Abdominal Pain, Belching, Constipation, Heartburn, Nausea. absent: Diarrhea, Hematemesis, Hematochezia, Vomiting - Genitourinary Genitourinary: absent: Dysuria, Hematuria Past Patient History - Infectious Disease Hx of Infectious Diseases: None - Past Social History Smoking Status: Never Smoked Alcohol: None Drugs: Denies - CARDIAC Hx Hypertension: Yes - PULMONARY Hx Respiratory Disorders: No - HEMATOLOGICAL/ONCOLOGICAL Hx Cirrhosis: No Hx Hepatitis A: No Hx Hepatitis B: No Hx Hepatitis C: No Hx Human Immunodeficiency Virus (HIV): No Other/Comment: Vitamin D Deficiency - GASTROINTESTINAL Hx Gastritis: Yes (2013 with fundic gland polyp) - PSYCHIATRIC Hx Substance Use: No - SURGICAL HISTORY Hx Cholecystectomy: Yes - ANESTHESIA Hx Anesthesia: Yes Hx Anesthesia Reactions: No Meds Allergies/Adverse Reactions: Allergies Allergy/AdvReac Type Severity Reaction Status Date / Time No Known Allergies Allergy Verified 09/03/18 19:29 - Medications Medications: Current Medications Al Hydrox/Mg Hydrox/Simethicone (Maalox Plus 30 Ml) 30 ml PO QID [facility] Last Admin: 09/04/18 18:57 Dose: 30 ml Dicyclomine HCl (Bentyl) 10 mg PO QID [facility] Hydrochlorothiazide (Hydrodiuril) 25 mg PO DAILY [facility] Last Admin: 09/04/18 09:52 Dose: 25 mg Sodium Chloride (Sodium Chloride 0.9%) 1,000 mls @ 100 mls/hr IV .Q10H [facility] Last Admin: 09/04/18 12:10 Dose: Not Given Ondansetron HCl (Zofran Inj) 4 mg IVP Q4 PRN PRN Reason: Nausea/Vomiting Pantoprazole Sodium (Protonix Inj) 40 mg IVP DAILY [facility] Last Admin: 09/04/18 09:52 Dose: 40 mg Pneumococcal Polyvalent Vaccine (Pneumovax 23 Vaccine) 0.5 ml IM .ONCE ONE Stop: 09/06/18 10:01 Simethicone (Mylicon Chew Tab) 80 mg PO BID PRN PRN Reason: GI distress Physical Exam - Constitutional Appears: No Acute Distress - Head Exam Head Exam: ATRAUMATIC, NORMOCEPHALIC - Eye Exam Eye Exam: EOMI, PERRL - Respiratory Exam Respiratory Exam: NORMAL BREATHING PATTERN - Cardiovascular Exam Cardiovascular Exam: REGULAR RHYTHM, +S1 - GI/Abdominal Exam GI & Abdominal Exam: Distended, Normal Bowel Sounds, Soft. absent: Organomegaly, Pulsatile Mass, Rebound, Tenderness - Rectal Exam Rectal Exam: Deferred - Extremities Exam Extremities exam: Positive for: normal inspection. Negative for: pedal edema - Neurological Exam Neurological exam: Alert, CN II-XII Intact, Oriented x3 - Psychiatric Exam Psychiatric exam: Normal Affect, Normal Mood - Skin Skin Exam: Dry, Warm Results - Vital Signs Recent Vital Signs: Last Vital Signs Temp 98.3 F 09/04/18 15:00 Pulse 76 09/04/18 15:00 Resp 20 09/04/18 15:00 BP 133/66 09/04/18 15:00 Pulse Ox 96 09/04/18 15:00 - Labs Result Diagrams: 09/04/18 07:16 09/04/18 07:16 Labs: Laboratory Results - last 24 hr 09/03/18 09/04/18 09/04/18 21:25 07:16 07:16 WBC 5.6 RBC 4.84 Hgb 15.0 D Hct 42.7 MCV 88.3 MCH 30.9 MCHC 35.0 RDW 14.4 Plt Count 209 MPV 9.0 Neut % (Auto) 51.8 Lymph % (Auto) 31.1 [place] % (Auto) 12.2 H Eos % (Auto) 4.3 H Baso % (Auto) 0.6 Neut # (Auto) 2.9 Lymph # (Auto) 1.7 [place] # (Auto) 0.7 Eos # (Auto) 0.2 Baso # (Auto) 0.0 Sodium 137 Potassium 4.0 Chloride 103 Carbon Dioxide 28 Anion Gap 11 BUN 19 Creatinine 1.4 Est GFR ( Amer) > 60 Est GFR (Non-Af Amer) 52 Random Glucose 91 Hemoglobin A1c Calcium 8.8 Total Bilirubin 0.8 AST 29 ALT 40 Alkaline Phosphatase 68 Total Protein 7.0 Albumin 3.8 Globulin 3.2 Albumin/Globulin Ratio 1.2 Urine Color Yellow Urine Clarity Clear Urine pH 6.0 Ur Specific [place] 1.006 Urine Protein Negative Urine Glucose (UA) Normal Urine Ketones Trace Urine Blood Negative Urine Nitrate Negative Urine Bilirubin Negative Urine Urobilinogen Normal Ur Leukocyte Esterase Trace Urine WBC (Auto) 3 Ur Squamous Epith Cells 1 09/04/18 07:16 WBC RBC Hgb Hct MCV MCH MCHC RDW Plt Count MPV Neut % (Auto) Lymph % (Auto) [place] % (Auto) Eos % (Auto) Baso % (Auto) Neut # (Auto) Lymph # (Auto) [place] # (Auto) Eos # (Auto) Baso # (Auto) Sodium Potassium Chloride Carbon Dioxide Anion Gap BUN Creatinine Est GFR ( Amer) Est GFR (Non-Af Amer) Random Glucose Hemoglobin A1c 6.1 Calcium Total Bilirubin AST ALT Alkaline Phosphatase Total Protein Albumin Globulin Albumin/Globulin Ratio Urine Color Urine Clarity Urine pH Ur Specific [place] Urine Protein Urine Glucose (UA) Urine Ketones Urine Blood Urine Nitrate Urine Bilirubin Urine Urobilinogen Ur Leukocyte Esterase Urine WBC (Auto) Ur Squamous Epith Cells - Imaging and Cardiology CT scan - abdomen Status: Image reviewed by me, Report reviewed by me Assessment & Plan (1) Epigastric pain Assessment and Plan: Symptoms suggestive of PUD vs acid reflux disease, erosive gastritis. Patient had EGD done five years ago and doesnt remember having it done or the doctor who peerformed it. Plan for EGD in am prior to likely discharge tomorrow Protonix 40mg bid Patient will need colonoscopy that can be done as outpatient for screening purposes. Status: Acute Priority: High (2) Heartburn Assessment and Plan: as above Status: Acute Priority: High (3) Gastritis Status: Resolved (4) Fundic gland polyposis of stomach Status: Chronic Priority: Low
[2018-09-05 08:31] LABS: BASO % 0.8 % (0.0-2.0); EOS # 0.2 K/uL (0.0-0.7); EOS % 3.2 % (0.0-4.0); HEMOGLOBIN 15.4 g/dL (12.0-18.0); LYMPH # 1.5 K/uL (1.0-4.3); LYMPH % 26.6 % (20.0-40.0); MEAN CELL VOLUME 88.3 fL (80.0-94.0); MEAN CORPUSCULAR HGB CONC 35.1 g/dL (33.0-37.0); MONO # 0.5 K/uL (0.0-0.8); NEUT # 3.4 K/uL (1.8-7.0); NEUT % 60.4 % (50.0-75.0); NRBC % 0.1 % (0.0-2.0); RBC 4.96 Mil/uL (4.40-5.90); WHITE BLOOD COUNT 5.7 K/uL (4.8-10.8)
[2018-09-05 08:51] LABS: ALB/GLOB RATIO 1.4 (1.0-2.1); ALBUMIN 4.2 g/dL (3.5-5.0); ALT/SGPT 48 U/L (21-72); AST/SGOT 39 U/L (17-59); BLOOD UREA NITROGEN 11 mg/dL (9-20); CALCIUM 8.5 mg/dl (8.6-10.4); GFR NON-AFRICAN AMERICAN 52
[2018-09-05] MEDS: Sodium Chloride 0.9% 1,000 ML IV SCH (09:29)
[2018-09-05] MEDS ORDERED: Lactated Ringer's 500 ML IV ONE (10:43)
[2018-09-05] MEDS: Alum-Mag Hydrox-Simethicone Susp (30 mL) PO SCH ×3 (10:44→17:02)
[2018-09-05] MEDS ORDERED: Midazolam 2 MG/2 ML VIAL ONE (10:58)
[2018-09-05] MEDS ORDERED: Propofol 10 mg/ml Inj (20 ML) ONE ×2 (10:58)
[2018-09-05] MEDS ORDERED: Lidocaine Hydrochloride 5 ML INJ ONE (10:59)
[2018-09-05 11:38] VITALS: O2SAT 98
[2018-09-05 12:24] VITALS: BP 127/82; PULSE 64; RESP 20; TEMP 98.1
--- NOTE | 2018-09-05 14:52 | CP.PCM.DIS ---
Provider - Provider Date of Admission: 09/03/18 23:32 Attending physician: Marco A Lees Jr, MD Consults: 09/04/18 19:46 Gastroenterology Consult Routine Comment: Consulting Provider: Germán Wilburn Consulting Physician: Germán Wilburn Reason for Consult: nausea, abdominal pain Diagnosis - Discharge Diagnosis (1) Peptic ulcer Status: Acute Hospital Course - Lab Results Lab Results: Most Recent Lab Values WBC 5.7 K/uL (4.8-10.8) 09/05/18 08:17 RBC 4.96 Mil/uL (4.40-5.90) 09/05/18 08:17 Hgb 15.4 g/dL (12.0-18.0) 09/05/18 08:17 Hct 43.8 % (35.0-51.0) 09/05/18 08:17 MCV 88.3 fL (80.0-94.0) 09/05/18 08:17 MCH 31.0 pg (27.0-31.0) 09/05/18 08:17 MCHC 35.1 g/dL (33.0-37.0) 09/05/18 08:17 RDW 14.0 % (11.5-14.5) 09/05/18 08:17 Plt Count 200 K/uL (130-400) 09/05/18 08:17 MPV 9.0 fL (7.2-11.7) 09/05/18 08:17 Neut % (Auto) 60.4 % (50.0-75.0) 09/05/18 08:17 Lymph % (Auto) 26.6 % (20.0-40.0) 09/05/18 08:17 [place] % (Auto) 9.0 % (0.0-10.0) 09/05/18 08:17 Eos % (Auto) 3.2 % (0.0-4.0) 09/05/18 08:17 Baso % (Auto) 0.8 % (0.0-2.0) 09/05/18 08:17 Neut # (Auto) 3.4 K/uL (1.8-7.0) 09/05/18 08:17 Lymph # (Auto) 1.5 K/uL (1.0-4.3) 09/05/18 08:17 Edwards # (Auto) 0.5 K/uL (0.0-0.8) 09/05/18 08:17 Eos # (Auto) 0.2 K/uL (0.0-0.7) 09/05/18 08:17 Baso # (Auto) 0.0 K/uL (0.0-0.2) 09/05/18 08:17 PT 12.6 SECONDS (9.7-12.2) H 09/03/18 20:06 INR 1.2 09/03/18 20:06 APTT 33.5 SECONDS (21-34) 09/03/18 20:06 Sodium 140 mmol/L (132-148) 09/05/18 08:17 Potassium 3.6 mmol/L (3.6-5.2) 09/05/18 08:17 Chloride 103 mmol/L (98-107) 09/05/18 08:17 Carbon Dioxide 28 mmol/L (22-30) 09/05/18 08:17 Anion Gap 13 (10-20) 09/05/18 08:17 BUN 11 mg/dL (9-20) 09/05/18 08:17 Creatinine 1.4 mg/dL (0.8-1.5) 09/05/18 08:17 Est GFR ( Amer) > 60 09/05/18 08:17 Est GFR (Non-Af Amer) 52 09/05/18 08:17 Random Glucose 104 mg/dL (75-110) 09/05/18 08:17 Hemoglobin A1c 6.1 % (4.2-6.5) 09/04/18 07:16 Calcium 8.5 mg/dl (8.6-10.4) L 09/05/18 08:17 Total Bilirubin 1.0 mg/dL (0.2-1.3) 09/05/18 08:17 AST 39 U/L (17-59) 09/05/18 08:17 ALT 48 U/L (21-72) 09/05/18 08:17 Alkaline Phosphatase 81 U/L (38-126) 09/05/18 08:17 Troponin I < 0.0120 ng/mL (0.00-0.120) 09/03/18 20:06 Total Protein 7.2 g/dL (6.3-8.3) 09/05/18 08:17 Albumin 4.2 g/dL (3.5-5.0) 09/05/18 08:17 Globulin 3.0 gm/dL (2.2-3.9) 09/05/18 08:17 Albumin/Globulin Ratio 1.4 (1.0-2.1) 09/05/18 08:17 Lipase 116 U/L (23-300) 09/03/18 20:06 Urine Color Yellow (YELLOW) 09/03/18 21:25 Urine Clarity Clear (Clear) 09/03/18 21:25 Urine pH 6.0 (5.0-8.0) 09/03/18 21:25 Ur Specific [place] 1.006 (1.003-1.030) 09/03/18 21:25 Urine Protein Negative mg/dL (NEGATIVE) 09/03/18 21:25 Urine Glucose (UA) Normal mg/dL (Normal) 09/03/18 21:25 Urine Ketones Trace mg/dL (NEGATIVE) 09/03/18 21:25 Urine Blood Negative (NEGATIVE) 09/03/18 21:25 Urine Nitrate Negative (NEGATIVE) 09/03/18 21:25 Urine Bilirubin Negative (NEGATIVE) 09/03/18 21:25 Urine Urobilinogen Normal mg/dL (0.2-1.0) 09/03/18 21:25 Ur Leukocyte Esterase Trace [place]/uL (Negative) 09/03/18 21:25 Urine WBC (Auto) 3 /hpf (0-5) 09/03/18 21:25 Ur Squamous Epith Cells 1 /hpf (0-5) 09/03/18 21:25 Stool Occult Blood (NEGATIVE) 09/05/18 01:36 - Hospital Course Hospital Course: On admission: 58M PMHx of HTN presents to the ED c/o abdominal pain associated with nausea that has been on and off for the past 3-4 days. Patient reports trying OTC antacids with no relief. Pt has had many similar episodes of indigestion/ heartburn in the past however this feels more severe. Patient still feels nauseous and has decreased PO intake. Pt did not seek any medical attention yet from PMD, came straight to ER. Pt is still in pain after ED treatments. Hospitalization: Patient is a 58 year old male with past medical history of hypertension and IGT admitted for nausea and abdominal pain Plan: Abdominal pain, acute - CT abdomen pelvis shows mild constipation, enlarged prostate - negative leukocytosis, afebrile - urinalysis unremarkable - Zofran q4 PRN - Simethicone PRN - Maalox QID - Bentyl QID - NS @ 100 - GI consulted, appreciate recs - NPO after midnight IGT, chronic - Hgba1c 6.1 Hypertension, chronic - home HCTZ 25mg PO daily PPX - Protonix, SCDs Dispo: endoscopy with Dr. Puentes found 2 peptic ulcers. Recommend protonix, and f/u in 4 weeks. Ddischarge instructions: Patient is stable for Discharge as per Dr. Lees. You will be discharged with the following prescriptions: Sucralfate 10mL four times a day (one hour before meals and before bed) Protonix 40mg once daily Zofran 4mg every 6 hours only if needed for nausea Continue all your other medications as you usually take them. You have confirmed that you do not need any refills. Please AVOID any non steroidal anti inflammatory medication for example: Advil, Motrin, Aspirin, ibuprofen, as these can make your ulcer worse. You should maintain a bland diet- nothing with seasoning or acidic foods. Avoid: tomato based products, orange juice, alcohol, smoking, chocolate, coffee, citrus fruits, fried foods, high fat foods. You may eat vegetables, whole grain, yogurt, fruits, foods high in fiber. Sit upright when you eat and do not eat right before bed. You are to follow up with Dr. Lees tomorrow and with Dr. Puentes in 4 weeks to schedule colonoscopy and to follow up pathology results from biopsy taken during your endoscopy. Discharge Exam - Head Exam Head Exam: ATRAUMATIC, NORMOCEPHALIC - Eye Exam Eye Exam: EOMI, Normal appearance, PERRL - ENT Exam ENT Exam: Mucous Membranes Moist - Neck Exam Neck exam: Full Rom, Normal Inspection - Respiratory Exam Respiratory Exam: Clear to PA & Lateral, NORMAL BREATHING PATTERN. absent: Rales, Rhonchi, Wheezes, Respiratory Distress - Cardiovascular Exam Cardiovascular Exam: REGULAR RHYTHM, +S1, +S2. absent: Systolic Murmur - GI/Abdominal Exam GI & Abdominal Exam: Soft, Tenderness (mild, epigastric). absent: Distended, Firm, Guarding, Rebound, Rigid - Extremities Exam Extremities exam: full ROM, normal capillary refill, pedal pulses present - Neurological Exam Neurological exam: Alert, CN II-XII Intact, Oriented x3 - Psychiatric Exam Psychiatric exam: Normal Affect, Normal Mood - Skin Skin Exam: Dry, Intact, Normal Color, Warm Discharge Plan - Follow Up Plan Condition: FAIR Disposition: HOME/ ROUTINE Instructions: Acid Reflux (Gastroesophageal Reflux Disease), Adult (DC), [place] Diet, Acute Abdomen (Belly Pain), Adult (DC), Gastritis (DC), Upper GI Endoscopy (DC) Additional Instructions: Patient is stable for Discharge as per Dr. Lees. You will be discharged with the following prescriptions: Sucralfate 10mL four times a day (one hour before meals and before bed) Protonix 40mg once daily Zofran 4mg every 6 hours only if needed for nausea Continue all your other medications as you usually take them. You have confirmed that you do not need any refills. Please AVOID any non steroidal anti inflammatory medication for example: Advil, Motrin, Aspirin, ibuprofen, as these can make your ulcer worse. You should maintain a bland diet- nothing with seasoning or acidic foods. Avoid: tomato based products, orange juice, alcohol, smoking, chocolate, coffee, citrus fruits, fried foods, high fat foods. You may eat vegetables, whole grain, yogurt, fruits, foods high in fiber. Sit upright when you eat and do not eat right before bed. You are to follow up with Dr. Lees tomorrow and with Dr. Puentes in 4 weeks to schedule colonoscopy and to follow up pathology results from biopsy taken during your endoscopy. Referrals: Mraco A Lees Jr., MD [Medical Doctor] - Derrell Puentes MD [Staff Provider] -
[2018-09-05] MEDS ORDERED: Pneumococcal 23-Valent Vaccine IM ONE (15:41)
--- NOTE | 2018-09-06 07:36 | CARD ---
APPROVED REPORT Date of service: 09/03/2018 EKG Measurement Heart [id number] <Conclusion> Normal sinus rhythm Normal ECG
[2018-09-06] MEDS ORDERED: Pneumococcal 23-Valent Vaccine IM ONE (10:00)
== END 2018-09-05 17:08 | disposition home or self-care (01) ==
LOC: C.ER 19:25 → C.9E 23:32 → C.5S 09-04 06:46
PROVIDERS: ADMIT Internal Medicine; ATTEND Internal Medicine
DX: K29.00 Acute gastritis without bleeding (principal); K29.40 Chronic atrophic gastritis without bleeding; K59.00 Constipation, unspecified; N40.0 Benign prostatic hyperplasia without lower urinary tract symptoms; R73.02 Impaired glucose tolerance (oral); R14.0 Abdominal distension (gaseous); I10 Essential (primary) hypertension
CPT/HCPCS: 36415; 43239; 74177; 80053; 81001; 82941; 83036; 83690; 84484; 85025; 85610; 85730; 86255; 88305; 88342; 90732; 93005; 96361; 96374; 96375; 96376; 99285; C9113; G0009; G0378; J1200; J1885; J2250; J2270; J2405; J2704; J2765; J3480; J7030; J7120; Q9967